=== PATIENT | male | born 1955 | race Caucasian/White ===

== ENCOUNTER → 2018-02-22 | Outpatient (CLI) | payer OTHER | END | disposition home or self-care (01) | LOC: MRI 12:00 | DX: M53.1 Cervicobrachial syndrome (principal); M54.17 Radiculopathy, lumbosacral region | CPT/HCPCS: 72141; 72148 ==

== ENCOUNTER 2022-09-29 18:10 | Emergency (ER) | payer OTHER ==
[~2022-09-29] VITALS: Ht 177.8 cm; Wt 117.0 kg
== END 2022-09-29 22:59 | disposition home or self-care (01) ==
LOC: ER 18:10
DX: S30.0XXA Contusion of lower back and pelvis, initial encounter (principal); W07.XXXA Fall from chair, initial encounter; Y93.9 Activity, unspecified; Y92.63 Factory as the place of occurrence of the external cause; F32.9 Major depressive disorder, single episode, unspecified; E78.00 Pure hypercholesterolemia, unspecified; Z88.0 Allergy status to penicillin; Z88.6 Allergy status to analgesic agent